=== PATIENT | male | born 1955 | race American Indian/Alaskan Native ===

== ENCOUNTER 2019-02-28 13:02 | Emergency (ER) | payer SELFPAY ==
[2019-02-28 13:10] VITALS: BP 154/96
--- NOTE | 2019-02-28 13:17 | Event Note ---
ED Screening Note Date of service: 02/28/19 Time: 13:14 ED Screening Note: This is a 63 y.o. M. that presents to the ER with pain to right hand x 1 week. Patient states he is unable to make a fist. He had carpal tunnel surgery 12/15/2018 with [facility]. He completed physical therapy. 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 States he felt a pop a few days ago while working and pain since. This initial assessment/diagnostic orders/clinical plan/treatment(s) is/are subject to change based on patients health status, clinical progression and re- assessment by fellow clinical providers in the ED. Further treatment and workup at subsequent clinical providers discretion. Patient/guardian urged not to elope from the ED as their condition may be serious if not clinically assessed and managed. Initial orders include: XR hand
[2019-02-28] MEDS ORDERED: IBUPROFEN PO ONE (13:39)
--- NOTE | 2019-02-28 14:15 | XRay Report ---
RIGHT HAND 5 VIEWS INDICATION / CLINICAL INFORMATION: pain and swelling palm. COMPARISON: None available. FINDINGS: No fracture, dislocation or soft tissue swelling is seen within the right hand. The joint spaces are well preserved. Signer Name: Marshall Leblanc MD Signed: 02/28/2019 2:11 PM Workstation Name: [id number]
--- NOTE | 2019-02-28 14:34 | Emergency Department Report ---
ED Extremity Problem HPI - General Chief complaint: Extremity Injury, Upper Stated complaint: RT HAND INJURY Time Seen by Provider: 02/28/19 13:14 Source: patient Mode of arrival: Ambulatory Limitations: No Limitations - History of Present Illness Initial comments: Patient is a 43-[id number]-[place] male who is complaining of some right hand pain for the last 2-3 days. Patient has a history of right sided carpal tunnel surgery approximately 2 months ago. 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 Patient states while working several days ago he had a ranch and did pull with some force. Patient's pain started after this incident but is progressively worsening with swelling. Patient has some swelling to the hand decreased ability to make a fist. He denies any fevers chills nausea vomiting at this time. Severity scale (0 -10): 8 Improves with: nothing - Related Data Previous Rx's Medication Instructions Recorded Last Taken Type Ibuprofen [Motrin 600 MG tab] 600 mg PO Q8H PRN #20 tablet 02/28/19 Unknown Rx traMADol [Ultram] 50 mg PO Q6HR PRN #12 tablet 02/28/19 Unknown Rx Allergies Allergy/AdvReac Type Severity Reaction Status Date / Time Penicillins Allergy Unknown Verified 02/28/19 13:14 ED Review of Systems ROS: Stated complaint: RT HAND INJURY Other details as noted in HPI Comment: All other systems reviewed and negative ED Past Medical Hx - Past Medical History Previous Medical History?: Yes Hx Hypertension: Yes Hx Diabetes: Yes - Surgical History Past Surgical History?: Yes Additional Surgical History: Colonoscopy, Colon resection, Left knee, Right hand carpel ruthie surgery - Social History Smoking Status: Former Smoker Substance Use Type: Prescribed - Medications Home Medications: Home Medications Medication Instructions Recorded Confirmed Last Taken Type Ibuprofen [Motrin 600 MG tab] 600 mg PO Q8H PRN #20 tablet 02/28/19 Unknown Rx traMADol [Ultram] 50 mg PO Q6HR PRN #12 tablet 02/28/19 Unknown Rx ED Physical Exam - General Limitations: No Limitations General appearance: alert, in no apparent distress - Head Head exam: Present: atraumatic, normocephalic - Eye Eye exam: Present: normal appearance - ENT ENT exam: Present: mucous membranes moist - Neck Neck exam: Present: normal inspection - Respiratory Respiratory exam: Absent: respiratory distress - Cardiovascular Cardiovascular Exam: Present: regular rate, normal rhythm - Rectal Rectal exam: Present: deferred - Extremities Exam Extremities exam: Present: normal inspection - Expanded Upper Extremity Exam Right Hand Wrist exam: Present: tenderness, swelling. Absent: full ROM (patient has some resistance to making a full fist secondary to some soft tissue swelling.) Hand L/R Front: 1 - Positive: other (with tenderness and mild swelling and contusion) Hand L/R Back: 1 - Mild soft tissue swelling - Back Exam Back exam: Present: normal inspection - Neurological Exam Neurological exam: Present: alert, oriented X3 - Psychiatric Psychiatric exam: Present: normal affect, normal mood - Skin Skin exam: Present: warm, dry, intact, normal color. Absent: rash ED Course Vital Signs 02/28/19 13:05 Temperature 98.5 F Pulse Rate 86 Respiratory 18 Rate Blood Pressure 154/96 O2 Sat by Pulse 100 Oximetry ED Medical Decision Making - Radiology Data Radiology results: report reviewed (x-ray shows no fracture) - Medical Decision Making Patient likely with some ligamentous injury secondary to his work and possible injury to his postsurgical area. Patient given anti-inflammatory meds and has been splinted. Patient returned to his orthopedic physician for further evaluation. Critical care attestation.: If time is entered above; I have spent that time in minutes in the direct care of this critically ill patient, excluding procedure time. ED Disposition Clinical Impression: Hand sprain Qualifiers: Encounter type: initial encounter Laterality: right Qualified Code(s): S63.91XA - Sprain of unspecified part of right wrist and hand, initial encounter Disposition: TO HOME OR SELFCARE Is pt being admited?: No Does the pt Need Aspirin: No Condition: Stable Instructions: Hand Sprain (ED) Time of Disposition: 14:36
== END 2019-02-28 14:50 | disposition home or self-care (01) ==
LOC: ED 13:02
DX: S63.91XA Sprain of unspecified part of right wrist and hand, initial encounter (principal); I10 Essential (primary) hypertension; E11.9 Type 2 diabetes mellitus without complications; Z98.890 Other specified postprocedural states; Z87.891 Personal history of nicotine dependence; Z79.899 Other long term (current) drug therapy; Z88.0 Allergy status to penicillin; X50.0XXA Overexertion from strenuous movement or load, initial encounter; Y93.89 Activity, other specified; Y92.89 Other specified places as the place of occurrence of the external cause; Y99.0 Civilian activity done for income or pay

== ENCOUNTER 2019-06-01 05:39 | Emergency (ER) | payer MEDICARE ==
[2019-06-01 05:46] VITALS: BP 172/84
--- NOTE | 2019-06-01 06:02 | Emergency Department Report ---
Minor Respiratory - HPI Chief Complaint: Upper Respiratory Infection Stated Complaint: POSSIBLE SINUS INFECTION Time Seen by Provider: 06/01/19 05:49 Duration: 4 Days Pain Location: Facial, Nose Severity: severe Minor Respiratory: Yes Rhinorrhea, Yes Able to Tolerate Fluids, Yes Cough, Yes Sick Contacts, No Sore Throat, No Ear Pain, No Hemoptysis, No Chest Pain, No Olga rtness of Breath, No Fever Other History: This is a 64-year-old -Mosoth[place] male who presents to the emergency room with cough, sinus pressure, and congestion for 4 days. Past medical history of type 2 diabetes and hypertension. Patient also reports myalgia which she is taking muscle relaxers and cold and flu medication with minimal improvement of symptoms. He denies chest pain, fever, nausea, vomiting, abdominal pain, diarrhea, or throat, weakness, or dizziness. ED Review of Systems ROS: Stated complaint: POSSIBLE SINUS INFECTION Other details as noted in HPI Constitutional: chills. denies: fever ENT: congestion. denies: ear pain, throat pain Respiratory: cough. denies: shortness of breath, wheezing Cardiovascular: denies: chest pain, palpitations Gastrointestinal: denies: abdominal pain, nausea, diarrhea Musculoskeletal: myalgia. denies: back pain, joint swelling, arthralgia Skin: denies: rash, lesions Neurological: denies: headache, weakness, paresthesias Psychiatric: denies: anxiety, depression ED Past Medical Hx - Past Medical History Previous Medical History?: Yes Hx Hypertension: Yes Hx Diabetes: Yes - Surgical History Past Surgical History?: Yes Additional Surgical History: Colonoscopy, Colon resection, Left knee, Right hand carpel ruthie surgery - Social History Smoking Status: Former Smoker Substance Use Type: None - Medications Home Medications: Home Medications Medication Instructions Recorded Confirmed Last Taken Type Ibuprofen [Motrin 600 MG tab] 600 mg PO Q8H PRN #20 tablet 02/28/19 Unknown Rx traMADol [Ultram] 50 mg PO Q6HR PRN #12 tablet 02/28/19 Unknown Rx Doxycycline Hyclate [Doxycycline 100 mg PO Q12HR #10 tab 06/01/19 Unknown Rx Hyclate TAB] Fluticasone [Flonase] 1 spray NS QDAY #1 bottle 06/01/19 Unknown Rx Minor Respiratory Exam - Exam General: Vital signs noted. No distress. Alert and acting appropriately. HEENT: Yes Pharyngeal Erythema (erythematous posterior pharynx, uvula midline), Yes Moist Mucous Membranes, Yes Rhinorrhea (turbinates enlarged with purulent discharge), Yes Conjuctival Injection, Yes Maxillary Tenderness, No Pharyngeal Exudates, No Frontal Tenderness Ear: Neither TM Bulge, Neither TM Erythema, Neither EAC Pain, Neither EAC Discharge Neck: Yes Supple, No Adenopathy Lungs: Yes Good Air Exchange, No Wheezes, No Ronchi, No Stridor, No Cough, No Labored Respirations, No Retractions, No Use of Accessory Muscles, No Other Abnormal Lung Sounds Heart: Yes Regular, No Murmur Abdomen: Yes Normal Bowel Sounds, No Tenderness, No Peritoneal Signs Skin: No Rash, No Edema Neurologic: Alert and oriented, no deficits. Musculoskeletal: Unremarkable. ED Course Vital Signs 06/01/19 05:44 Temperature 98.7 F Pulse Rate 84 Respiratory 18 Rate Blood Pressure 172/84 O2 Sat by Pulse 99 Oximetry ED Medical Decision Making - Medical Decision Making Patient examined by me and stable. No distress noted. Vitals normal. Past medical history of hypertension and type 2 diabetes. Moderate congestion and maxillary sinus tenderness on exam. Acute maxillary sinusitis. Start doxycycline and Flonase. Take Tylenol, ibuprofen, or naproxen for pain. Discharged home stable. Encouraged to do supportive care for URI. Follow up with Primary Care Provider in 2-3 days. Critical care attestation.: If time is entered above; I have spent that time in minutes in the direct care of this critically ill patient, excluding procedure time. ED Disposition Clinical Impression: Cough in adult, Rhinorrhea Acute maxillary sinusitis Qualifiers: Recurrence: non-recurrent Qualified Code(s): J01.00 - Acute maxillary sinusitis, unspecified Disposition: - TO HOME OR SELFCARE Is pt being admited?: No Condition: Stable Instructions: Sinusitis (ED), Cold Symptoms (ED) Additional Instructions: Use warm moist compresses over sinuses. Use ibuprofen or Tylenol for pain. Use nasal saline spray. Avoid taking antihistamines. Follow up with Primary Care Provider if fever, short of breath, chest pain, or symptoms do not improve as discussed. Prescriptions: Doxycycline Hyclate [Doxycycline Hyclate TAB] 100 mg PO Q12HR #10 tab Fluticasone [Flonase] 1 spray NS QDAY #1 bottle Referrals: [facility] [Outside] - 3-5 Days [facility] [Outside] - 3-5 Days [facility] [Outside] - 3-5 Days Forms: Work/School Release Form(ED) Time of Disposition: 06:08
== END 2019-06-01 06:15 | disposition home or self-care (01) ==
LOC: ED 05:39
DX: J01.00 Acute maxillary sinusitis, unspecified (principal); I10 Essential (primary) hypertension; E11.9 Type 2 diabetes mellitus without complications; Z88.0 Allergy status to penicillin
CPT/HCPCS: 99282

== ENCOUNTER 2019-09-21 14:00 | Observation (INO) | payer MEDICARE ==
--- NOTE | 2019-09-21 14:18 | Event Note ---
ED Screening Note ED Screening Note: cp that began two weeks ago states it feels like pressure states he also has right lower back pain radiates down the back of the leg no n/v/d no fever states occasionally his breathing feels labored no leg swelling PMHx HTN, DM, GERD, HLD allergy: PCN states he had a stress test three years ago which was normal no recent travel or surgery This initial assessment/diagnostic orders/clinical plan/treatment(s) is/are subject to change based on patients health status, clinical progression and re-assessment by fellow clinical providers in the ED. Further treatment and workup at subsequent clinical providers discretion. Patient/guardian urged not to elope from the ED as their condition may be serious if not clinically assessed and managed. Initial orders include: CP protocol
--- NOTE | 2019-09-21 15:01 | XRay Report ---
CHEST 2 VIEWS INDICATION: Chest pain. COMPARISON: None FINDINGS: Support devices: None. Heart: Within normal limits. Lungs/pleura: No acute air space or interstitial disease. No pneumothorax. Additional findings: None. IMPRESSION: No acute findings. Signer Name: Clovis Nelson Jr, MD Signed: 09/21/2019 2:57 PM Workstation Name: [id number]
[2019-09-21 15:53] LABS: Mean Corpuscular HGB Conc 31 % (32-34); Mean Corpuscular Volume 74 fl (84-94); Platelet Count 276 K/mm3 (140-440); Red Blood Count 4.74 M/mm3 (3.65-5.03)
--- NOTE | 2019-09-21 15:54 | Emergency Department Report ---
ED Chest Pain HPI - General Chief Complaint: Chest Pain Stated Complaint: CHEST PAIN, SOB , RIGHT LEG PAIN Time Seen by Provider: 09/21/19 14:15 Source: patient Mode of arrival: Ambulatory Limitations: No Limitations - History of Present Illness Initial Comments: Patient is 64 years old male with history of hypertension and diabetes. Patient presented to the ER complaining of chest pain for the last 2 weeks. Patient stated that pain is worse today and that is why he came to the ER. Patient describes his pain as substernal, he stated that he feels like somebody sitting on his chest. Patient denied any fever, chills or cough. MD Complaint: chest pain -: week(s) Onset: during rest Pain Location: substernal Pain Radiation: none Severity: moderate Severity scale (0 -10): 5 Quality: tightness, heaviness Consistency: intermittent - Related Data Home Medications Medication Instructions Recorded Confirmed Last Taken Amlodipine Besylate/Benazepril 1 cap PO DAILY 09/21/19 09/21/19 Unknown [Amlodipine-Benazepril 10-40 mg] Dapagliflozin Propanediol [Farxiga] 10 mg PO DAILY 09/21/19 09/21/19 Unknown Metformin HCl [Metformin HCl ER] 750 mg PO DAILY 09/21/19 09/21/19 Unknown hydroCHLOROthiazide [HCTZ] 25 mg PO DAILY 09/21/19 09/21/19 Unknown Allergies Allergy/AdvReac Type Severity Reaction Status Date / Time Penicillins Allergy Unknown Verified 02/28/19 13:14 Heart Score - HEART Score History: Moderately suspicious EKG: Non-specific Age: 45-65 Risk factors: 1-2 risk factors Troponin: < normal limit HEART Score: 4 - Critical Actions Critical Actions: 4-6 pts:12-16.6% risk of adverse cardiac event. Should be admitted ED Review of Systems ROS: Stated complaint: CHEST PAIN, SOB , RIGHT LEG PAIN Other details as noted in HPI Comment: All other systems reviewed and negative Constitutional: denies: chills Respiratory: shortness of breath. denies: cough, SOB with exertion, SOB at rest, wheezing Cardiovascular: chest pain. denies: palpitations, dyspnea on exertion Gastrointestinal: denies: abdominal pain, nausea, vomiting, diarrhea, constipation, hematemesis, melena, hematochezia Musculoskeletal: denies: back pain Neurological: denies: headache, weakness ED Past Medical Hx - Past Medical History Previous Medical History?: Yes Hx Hypertension: Yes Hx Diabetes: Yes - Surgical History Past Surgical History?: Yes Additional Surgical History: Colonoscopy, Colon resection, Left knee, Right hand carpel ruthie surgery - Social History Smoking Status: Never Smoker Substance Use Type: None - Medications Home Medications: Home Medications Medication Instructions Recorded Confirmed Last Taken Type Amlodipine Besylate/Benazepril 1 cap PO DAILY 09/21/19 09/21/19 Unknown History [Amlodipine-Benazepril 10-40 mg] Dapagliflozin Propanediol [Farxiga] 10 mg PO DAILY 09/21/19 09/21/19 Unknown History Metformin HCl [Metformin HCl ER] 750 mg PO DAILY 09/21/19 09/21/19 Unknown Histo ry hydroCHLOROthiazide [HCTZ] 25 mg PO DAILY 09/21/19 09/21/19 Unknown History ED Physical Exam - General Limitations: No Limitations General appearance: alert, in no apparent distress - Head Head exam: Present: atraumatic, normocephalic, normal inspection - Eye Eye exam: Present: normal appearance - ENT ENT exam: Present: normal exam, normal orophraynx, mucous membranes moist - Neck Neck exam: Present: normal inspection, full ROM. Absent: tenderness, meningismus - Respiratory Respiratory exam: Present: normal lung sounds bilaterally. Absent: respiratory distress, wheezes, rales, rhonchi, stridor, chest wall tenderness, accessory muscle use, decreased breath sounds, prolonged expiratory - Cardiovascular Cardiovascular Exam: Present: regular rate, normal rhythm, normal heart sounds - GI/Abdominal GI/Abdominal exam: Present: soft, normal bowel sounds. Absent: distended, tenderness, guarding, rebound, rigid, organomegaly, mass, bruit, pulsatile mass, hernia - Extremities Exam Extremities exam: Present: normal inspection, full ROM, normal capillary refill. Absent: tenderness, pedal edema, calf tenderness - Back Exam Back exam: Present: normal inspection, full ROM. Absent: CVA tenderness (R), CVA tenderness (L) - Neurological Exam Neurological exam: Present: alert, oriented X3, CN II-XII intact, normal gait, reflexes normal. Absent: motor sensory deficit - Psychiatric Psychiatric exam: Present: normal mood - Skin Skin exam: Present: warm, intact, normal color ED Course Vital Signs 02/09/21/19 09/21/19 14:28 15:56 17:19 Temperature 97.7 F Pulse Rate 79 73 69 Respiratory 20 15 15 Rate Blood Pressure 160/89 Blood Pressure 148/82 141/85 [Right] O2 Sat by Pulse 100 99 98 Oximetry 09/21/19 09/21/19 09/21/19 19:45 20:04 20:15 Temperature Pulse Rate 74 74 66 Respiratory 16 13 Rate Blood Pressure 160/89 Blood Pressure 168/90 137/107 [Right] O2 Sat by Pulse 100 100 Oximetry 09/21/19 21:00 Temperature Pulse Rate 71 Respiratory 15 Rate Blood Pressure Blood Pressure 147/90 [Right] O2 Sat by Pulse 98 Oximetry ED Medical Decision Making - Lab Data Result diagrams: 09/21/19 15:23 09/21/19 15:23 - EKG Data -: EKG Interpreted by Me EKG shows normal: sinus rhythm Rate: normal - EKG Data Interpretation: no acute changes - Radiology Data Radiology results: report reviewed - Medical Decision Making Patient is 64 years old male with history of hypertension and diabetes. Patient presented to the ER complaining of chest pain for the last 2 weeks. Patient stated that pain is worse today and that is why he came to the ER. Patient describes his pain as substernal, he stated that he feels like somebody sitting on his chest. Patient denied any fever, chills or cough. EKG showed no ST elevation or depression. Labs reviewed and is unremarkable except for slightly elevated d-dimer. Patient had a CTA chest which is negative for pulmonary embolism. I discussed the patient with Dr. Anjelica Hernandez, she agreed to admit the patient to medical service for further management. Critical care attestation.: If time is entered above; I have spent that time in minutes in the direct care of this critically ill patient, excluding procedure time. ED Disposition Clinical Impression: Chest pain Disposition: - OP ADMIT IP TO THIS HOSP Is pt being admited?: Yes Condition: Stable Instructions: Chest Pain (ED)
[2019-09-21 16:01] LABS: Alanine Aminotransferase 21 units/L (7-56); Albumin 4.5 g/dL (3.9-5); BUN/Creatinine Ratio 10; Blood Urea Nitrogen 11 mg/dL (9-20); Hemolysis Index 3
[2019-09-21 16:27] LABS: Anisocytosis 1+; Basophils % (Manual) 0 % (0.0-1.8); Hypochromasia 1+; Total Cells Counted 100
[2019-09-21 16:36] LABS: INR 0.98 (0.87-1.13)
[2019-09-21 16:37] LABS: Partial Thromboplastin Time 27.1 Sec. (24.2-36.6)
[2019-09-21] MEDS ORDERED: METOPROLOL TARTRATE 5 MG/5 ML INJ IV ONE (19:03)
--- NOTE | 2019-09-21 19:27 | Cat Scan Report ---
CTA CHEST WITH IV CONTRAST INDICATION: CHEST PAIN WITH DYSPNEA. TECHNIQUE: Axial CT images were obtained through the chest after injection of 100 mL IV contrast. 3 plane MIP re constructions were produced. All CT scans at this location are performed using CT dose reduction for ALARA by means of automated exposure control. COMPARISON: None available. FINDINGS: PULMONARY ARTERIES: No pulmonary emboli. AORTA AND ARTERIES: No acute abnormality. MEDIASTINUM: No mass, lymphadenopathy or other significant abnormality. The heart is normal in size w ithout a pericardial effusion. The trachea and main bronchi are patent and normal in caliber. LUNGS: No suspicious consolidation, nodule or mass. No pneumothorax or pleural effusion. ADDITIONAL FINDINGS: None. UPPER ABDOMEN: No acute findings. BONES: No significant osseous abnormality. IMPRESSION: 1. No CT evidence for pulmonary embolism. 2. No acute findings. Signer Name: Kg Cardenas MD Signed: 09/21/2019 7:23 PM Workstation Name: [id number]
[2019-09-21] MEDS ORDERED: ASPIRIN 81 MG TAB CHEW PO ONE (19:52)
[2019-09-21] MEDS ORDERED: OXYMETAZOLINE 0.05% NASAL SPRAY NS ONE (21:36)
--- NOTE | 2019-09-21 22:37 | History and Physical Report ---
History of Present Illness Date of admission: 09/21/19 22:09 History of present illness: 64-year-old male with a history of hypertension, diabetes comes emergency room with complaints of chest pain. Pain is in the epigastric area that started 2 week ago. He described the pain as pressure, lasting for 6-8 hours, intensity 5/10, no radiation, cannot identify exacerbating factors he denies any nausea vomiting, diaphoresis or palpitation, shortness of breath. He had a stress test 3 years ago which was negative. Patient is being admitted for evaluation of chest pain Review of systems Constitutional: no weight loss Ears, eyes, nose, mouth and throat: no nasal congestion, no nasal discharge, no sinus pressure, no vision change, no red eye. Neck: No neck pain or rigidity. Cardiovascular: no palpitations Respiratory: no cough, shortness of breath Gastrointestinal: no hematochezia, abdominal pain Genitourinary : no frequency , no hematuria Musculoskeletal: no joint swelling or muscle ache Integumentary: no rash, no pruritis Neurological: no parathesias, focal weakness Endocrine: no cold or heat intolerance, no polyuria or polydipsia Hematologic/Lymphatic: no easy bruising, no easy bleeding, no gland swelling Allergic/Immunologic: no urticaria, no angioedema. PAST MEDICAL HISTORY: Hypertension, diabetes PAST SURGICAL HISTORY: Colon resection left knee, carpal tunnel release SOCIAL HISTORY: Denies alcohol, tobacco, drugs FAMILY HISTORY: Hypertension Medications and Allergies Allergies Allergy/AdvReac Type Severity Reaction Status Date / Time Penicillins Allergy Unknown Verified 02/28/19 13:14 Home Medications Medication Instructions Recorded Confirmed Last Taken Type Amlodipine Besylate/Benazepril 1 cap PO DAILY 09/21/19 09/21/19 Unknown History [Amlodipine-Benazepril 10-40 mg] Dapagliflozin Propanediol [Farxiga] 10 mg PO DAILY 09/21/19 09/21/19 Unknown History Metformin HCl [Metformin HCl ER] 750 mg PO DAILY 09/21/19 09/21/19 Unknown History hydroCHLOROthiazide [HCTZ] 25 mg PO DAILY 09/21/19 09/21/19 Unknown History Active Meds: Active Medications Enoxaparin Sodium (Enoxaparin) 30 mg SUB-Q QDAY SUSAN Exam - Physical Exam Narrative exam: Gen. appearance: Patient lying in bed, no apparent distress HEENT: Normocephalic, atraumatic, pupils equally round and reactive to light, extraocular movement intact, and no sclericterus,. No JVD or thyromegaly or nodule,neck supple, no carotid bruit ,mucous membranes moist, no exudate or erythema Heart: S1, S2, regular rate and rhythm Lungs: Clear to auscultation bilaterally, breathing comfortable Abdomen: Positive bowel sounds, nontender, nondistended, no organomegaly Extremity: No edema, cyanosis, clubbing Skin: No rash, nodules, warm, dry Neuro: Oriented 3, cranial nerves II-12 intact, speech is fluent, motor and sensory intact - Constitutional Vitals: Temp Pulse Resp BP Pulse Ox 97.7 F 71 15 147/90 98 09/21/19 14:28 09/21/19 21:00 09/21/19 21:00 09/21/19 21:00 09/21/19 21:00 Results - Labs CBC & Chem 7: 09/21/19 15:23 09/21/19 15:23 Labs: Abnormal lab results 09/21/19 09/21/19 09/21/19 Range/Units 15:23 15:23 15:55 Hgb 11.0 L (11.8-15.2) gm/dl Hct 35.0 L (35.5-45.6) % MCV 74 L (84-94) fl MCH 23 L (28-32) pg MCHC 31 L (32-34) % RDW 18.0 H (13.2-15.2) % Seg Neuts % (Manual) 30.0 L (40.0-70.0) % Lymphocytes % (Manual) 59.0 H (13.4-35.0) % Eosinophils % (Manual) 5.0 H (0.0-4.3) % D-Dimer 263.30 H (0-234) ng/mlDDU Glucose 157 H (75-100) mg/dL Calcium 11.0 H (8.4-10.2) mg/dL Alkaline Phosphatase 132 H (35-129) units/L - Imaging and Cardiology EKG: image reviewed Chest x-ray: report reviewed, image reviewed CT scan - chest: report reviewed Assessment and Plan Assessment Chest pain Check cardiac enzymes,stress test Start aspirin, Percocet Diabetes Check fingersticks, initiate insulin sliding scale Hypertension Continue outpatient medications DVT prophylaxis
[2019-09-21] MEDS ORDERED: oxyCODONE /ACETAMINOPHEN 5-325MG TAB PO PRN (23:39)
[2019-09-21] MEDS ORDERED: ACETAMINOPHEN 325 MG TAB PO PRN (23:39)
[2019-09-21] MEDS ORDERED: ONDANSETRON 4 MG/2 ML INJ IV PRN (23:39)
[2019-09-21] MEDS ORDERED: DEXTROSE 50% IN WATER (25GM) 50 ML SYRINGE IV PRN (23:41)
[2019-09-22] MEDS: INSULIN LISPRO 100 UNIT/ML SUB-Q SCH ×2 (00:45→07:10)
[2019-09-22 01:21] LABS: Creatine Kinase MB 2.8 ng/mL (0.0-4.0)
[2019-09-22 07:25] LABS: Basophils # (Auto) 0.1 K/mm3 (0.0-0.1); Basophils % (Auto) 1.4 % (0.0-1.8); Eosinophils # (Auto) 0.3 K/mm3 (0.0-0.4); Eosinophils % (Auto) 4.9 % (0.0-4.3); Hemoglobin 10.5 gm/dl (11.8-15.2); Lymphocytes # (Auto) 2.5 K/mm3 (1.2-5.4); Mean Corpuscular HGB Conc 32 % (32-34); Mean Corpuscular Volume 73 fl (84-94); Monocytes # (Auto) 0.7 K/mm3 (0.0-0.8); Monocytes % (Auto) 12.8 % (0.0-7.3); Platelet Count 268 K/mm3 (140-440); Red Blood Count 4.56 M/mm3 (3.65-5.03); Red Cell Distribution Width 17.5 % (13.2-15.2)
[2019-09-22 07:44] LABS: Creatine Kinase MB 2.4 ng/mL (0.0-4.0)
[2019-09-22] MEDS ORDERED: REGADENOSON 0.4 MG/5 ML INJ IV ONE (07:48)
[2019-09-22 07:49] LABS: BUN/Creatinine Ratio 12; Blood Urea Nitrogen 13 mg/dL (9-20); Calcium 10.3 mg/dL (8.4-10.2); Hemolysis Index 0
[2019-09-22] MEDS ORDERED: amLODIPine 10 MG TAB PO SCH (10:00)
[2019-09-22] MEDS ORDERED: AMLODIPINE BESYLATE PO SCH (10:00)
[2019-09-22] MEDS ORDERED: [UNRECOGNIZED DRUG - OTHER] PO SCH (10:00)
[2019-09-22] MEDS ORDERED: LISINOPRIL 40 MG TAB PO SCH (10:00)
[2019-09-22] MEDS ORDERED: BENAZEPRIL PO SCH (10:00)
[2019-09-22] MEDS ORDERED: ENOXAPARIN 40 MG/0.4 ML INJ SUB-Q SCH (10:00)
[2019-09-22 10:13] VITALS: BP 143/85
--- NOTE | 2019-09-22 12:06 | Discharge Summary ---
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 Follow up with: PRIMARY CARE, [Primary Care Provider] - 3-5 Days Prescriptions: Famotidine [Pepcid] 20 mg PO BID #60 tablet
== END 2019-09-22 13:00 | disposition home or self-care (01) ==
LOC: ED 14:00 → 4A 22:09
PROVIDERS: ADMIT Internal Medicine; ATTEND Internal Medicine
DX: R07.89 Other chest pain (principal); I10 Essential (primary) hypertension; E11.9 Type 2 diabetes mellitus without complications; Z98.890 Other specified postprocedural states; Z79.84 Long term (current) use of oral hypoglycemic drugs
CPT/HCPCS: 36415; 71046; 71275; 80048; 80053; 82550; 82553; 82962; 83880; 84484; 85007; 85025; 85379; 85610; 85730; 93005; 93010; 93017; 96372; 96374; 99285; G0378; J1650; J2785; Q9967

== ENCOUNTER 2020-10-26 09:46 | Day surgery (SDC) | payer MEDICARE ==
[~2020-10-26 09:46] MED LIST: ceFAZolin/Water 2 GM/20 ML 2 GM/20 ML SYRINGE IV NR
[2020-10-26] MEDS ORDERED: NEOMY 40 MG/POLYMYXIN B 200,000 UNITS/ML (GU) AMPULE IR ONE (09:47)
[2020-10-26] MEDS ORDERED: LACTATED RINGERS 1,000 ML IV SCH (11:15)
--- NOTE | 2020-10-26 11:17 | Anesthesia Day of Surgery ---
Anesthesia Day of Surgery - Day of Surgery Patient Examined: Yes Patient H&P Reviewed: Yes Patient is NPO: Yes
[2020-10-26] MEDS ORDERED: HYDROmorphone 1 MG/1 ML INJ IV PRN ×2 (11:18)
[2020-10-26] MEDS ORDERED: ONDANSETRON 4 MG/2 ML INJ IV PRN (11:18)
--- NOTE | 2020-10-26 11:18 | Anesthesia Consultation ---
Anesthesia Consult and Med Hx Date of service: 10/26/20 - Airway Anesthetic Teeth Evaluation: Edentulous ROM Head & Neck: Adequate Mental/Hyoid Distance: Adequate Mallampati Class: Class II Intubation Access Assessment: Good - Pre-Operative Health Status ASA Pre-Surgery Classification: ASA2 Proposed Anesthetic Plan: General Nerve Block: Femoral - Cardiovascular System Hx Hypertension: Yes - Central Nervous System Hx Psychiatric Problems: No - Other Systems Hx Cancer: Yes
[2020-10-26] MEDS ORDERED: dexAMETHasone 4 MG/ML VIAL ONE (11:21)
[2020-10-26] MEDS ORDERED: BUPIVACAINE/PF (0.25%) 2.5 MG/ML 30 ML VIAL INFILTRATI ONE (11:22)
[2020-10-26] MEDS ORDERED: MIDAZOLAM 2 MG/2 ML INJ IV NR (12:00)
[2020-10-26] MEDS ORDERED: VANCOMYCIN/NS 1 GM/250 ML 1 GM/250 ML BAG IV NR (12:00)
[2020-10-26] MEDS ORDERED: CELECOXIB 200 MG CAP PO NR (12:00)
[2020-10-26] MEDS ORDERED: LIDOCAINE MPF (2%) 20 MG/1 ML VIAL 5 ML ONE (12:05)
[2020-10-26] MEDS ORDERED: HYDROmorphone 1 MG/1 ML INJ ONE (12:05)
[2020-10-26] MEDS ORDERED: ROCURONIUM 50 MG/5 ML INJ IV ONE (12:05)
[2020-10-26] MEDS ORDERED: dexAMETHasone 20 MG/5 ML VIAL ONE (12:05)
[2020-10-26] MEDS ORDERED: KETOROLAC 30 MG/1 ML INJ ONE ×2 (12:05→13:23)
[2020-10-26] MEDS ORDERED: ONDANSETRON 4 MG/2 ML INJ ONE (12:05)
[2020-10-26] MEDS ORDERED: propofoL 200 MG/20 ML VIAL IV ONE (12:06)
[2020-10-26] MEDS ORDERED: MAGNESIUM OXIDE 400 MG TAB PO ONE (12:18)
[2020-10-26] MEDS ORDERED: fentaNYL 100 MCG/2 ML INJ IV ONE (12:18)
[2020-10-26] MEDS ORDERED: ACETAMINOPHEN 500 MG TAB PO ONE (12:18)
[2020-10-26] MEDS ORDERED: VANCOMYCIN 1,500 MG in SODIUM CHLORIDE 0.9% 500 ML 500 ML IV ONE (12:30)
[2020-10-26] MEDS ORDERED: SODIUM CHLORIDE 0.9% IRR 1,500 ML BOTTLE IR ONE (13:16)
[2020-10-26] MEDS ORDERED: NEOSTIGMINE 10MG/10 ML INJ MDV ONE (13:23)
[2020-10-26] MEDS ORDERED: GLYCOPYRROLATE 0.4 MG/2 ML INJ ONE (13:23)
[2020-10-26] MEDS ORDERED: PHENYLEPHRINE/NS 1,000 MCG/10 ML SYRINGE (OR USE) IV ONE (13:30)
--- NOTE | 2020-10-26 13:45 | Procedure Note ---
Date of procedure: 10/26/20 Pre-op diagnosis: Ruptured left quadriceps tendon Post-op diagnosis: same Procedure: Repair of rupture [left] quadriceps tendon Procedure The patient was brought to the OR and placed on the OR table in supine position following induction and intubation by anesthesia the patient's [left] lower extremity was prepped and draped in the usual sterile manner. A timeout procedure was done to identify the patient and the correct operative site. The leg was exsanguinated followed by inflation of the pneumatic tourniquet to 300 mmHg. Midline incision was made superior to the superior pole of the patella and taken down distally to the tibial tubercle. The incision was carried down through skin and subcutaneous the quadriceps tendon was seen and was ruptured roughly 1 cm to its insertion into the superior pole the medial and lateral patellar retinacula were also torn following this the undersurface of the patella was debrided of soft tissue next a #5 Ethibond suture was placed in the quadriceps tendon superiorly and using a baseball type stitch this suture was brought distally through the substance of the patella next day drillbit was used to create our patella tunnels 1 medially the ligament laterally following this a suture passer was used to grab the #5 Ethibond suture and pulled out bony tunnels through the knee was held in extension and the suture construct was sewn and tightened into position The remaining portion of the quadriceps tendon was sewn into the substance of our superior patella tendon using #1 Vicryl the medial and lateral patellar retinacula were repaired primarily. Next the wound was copiously irrigated the remaining soft tissue were sewn together subcutaneously a zip line suture closure was used to approximate the skin edges routine postoperative dressings were applied. The patient tolerated the procedure there were no complications he was sent to postanesthesia recovery in stable condition Anesthesia: LALI, regional Surgeon: CLEVELAND LANDIS (Keturah Reina, 1st assist) Estimated blood loss: minimal Pathology: none Condition: stable Disposition: PACU
[2020-10-26 14:49] VITALS: BP 140/83
== END 2020-10-26 15:35 | disposition home or self-care (01) ==
LOC: OR 09:46
PROVIDERS: ATTEND Orthopaedic Surgery
DX: S76.112A Strain of left quadriceps muscle, fascia and tendon, initial encounter (principal); K21.9 Gastro-esophageal reflux disease without esophagitis; M19.90 Unspecified osteoarthritis, unspecified site; Z88.0 Allergy status to penicillin; Z79.899 Other long term (current) drug therapy; Z79.84 Long term (current) use of oral hypoglycemic drugs; Z85.038 Personal history of other malignant neoplasm of large intestine; Z98.890 Other specified postprocedural states; X58.XXXA Exposure to other specified factors, initial encounter; Y93.89 Activity, other specified; Y92.89 Other specified places as the place of occurrence of the external cause; Y99.8 Other external cause status
CPT/HCPCS: 27385; 36415; 82962; 84132; J1100; J1170; J1885; J2250; J2370; J2405; J2704; J2710; J3010; J3370; J7040; J7120; 64450; J0690

== ENCOUNTER 2021-03-07 00:12 | Emergency (ER) | payer MEDICARE ==
[2021-03-07 02:33] VITALS: BP 150/80
== END 2021-03-07 07:00 | disposition home or self-care (01) ==
LOC: ED 00:12
DX: S91.332A Puncture wound without foreign body, left foot, initial encounter (principal); I10 Essential (primary) hypertension; E11.8 Type 2 diabetes mellitus with unspecified complications; M19.90 Unspecified osteoarthritis, unspecified site; K21.9 Gastro-esophageal reflux disease without esophagitis; Z98.890 Other specified postprocedural states; Z88.0 Allergy status to penicillin; W22.8XXA Striking against or struck by other objects, initial encounter; Y93.89 Activity, other specified; Y92.89 Other specified places as the place of occurrence of the external cause; Y99.0 Civilian activity done for income or pay
CPT/HCPCS: 90471; 90714; 99283

== ENCOUNTER 2021-03-16 09:12 | Emergency (ER) | payer MEDICARE ==
[2021-03-16 09:53] VITALS: BP 140/74
[2021-03-16 10:45] LABS: Basophils # (Auto) 0.1 K/mm3 (0.0-0.1); Basophils % (Auto) 0.9 % (0.0-1.8); Eosinophils # (Auto) 0.1 K/mm3 (0.0-0.4); Eosinophils % (Auto) 1.5 % (0.0-4.3); Hematocrit 25.8 % (35.5-45.6); Hemoglobin 7.9 gm/dl (11.8-15.2); Lymphocytes % (Auto) 23.9 % (13.4-35.0); Mean Corpuscular HGB Conc 31 % (32-34); Monocytes # (Auto) 0.8 K/mm3 (0.0-0.8); Monocytes % (Auto) 9.3 % (0.0-7.3); Platelet Count 293 K/mm3 (140-440); Red Blood Count 3.89 M/mm3 (3.65-5.03); Red Cell Distribution Width 19.3 % (13.2-15.2)
[2021-03-16 10:56] LABS: Mean Corpuscular Volume 66 fl (84-94)
[2021-03-16 10:59] LABS: BUN/Creatinine Ratio 15; Blood Urea Nitrogen 18 mg/dL (9-20); Calcium 11.2 mg/dL (8.4-10.2); Hemolysis Index 5
--- NOTE | 2021-03-16 11:12 | Vascular Lab Report ---
DUPLEX DOPPLER UPPER EXTREMITY VENOUS, LEFT INDICATION / CLINICAL INFORMATION: left arm pain. TECHNIQUE: Duplex doppler imaging was performed through the veins of the left upper extremity using venous compr ession and other maneuvers. COMPARISON: None available. FINDINGS: LEFT INTERNAL JUGULAR VEIN: Negative. LEFT SUBCLAVIAN VEIN: Negative. LEFT AXILLARY VEIN: Negative. LEFT BRACHIAL VEIN: Negative. LEFT FOREARM VEINS: Negative. LEFT BASILIC VEIN (SUPERFICIAL): Negative. ADDITIONAL FINDINGS: None. IMPRESSION: 1. No sonographic evidence for DVT. Signer Name: Goran Freeman MD Signed: 03/16/2021 11:08 AM Workstation Name: [id number]
--- NOTE | 2021-03-16 11:13 | XRay Report ---
XR shoulder 2+V LT INDICATION / CLINICAL INFORMATION: left shoulder pain. COMPARISON: None available. FINDINGS: BONES/JOINT(S): No acute fracture or subluxation. No significant degenerative changes. SOFT TISSUES: No significant abnormality. ADDITIONAL FINDINGS: None. Signer Name: Goran Freeman MD Signed: 03/16/2021 11:09 AM Workstation Name: [id number]
--- NOTE | 2021-03-16 11:47 | Emergency Department Report ---
ED Upper Extremity Inj HPI - General Chief Complaint: Extremity Injury, Upper Stated Complaint: BAD REACTION TO TETNUS SHOT Time Seen by Provider: 03/16/21 10:05 Source: patient Mode of arrival: Ambulatory Limitations: No Limitations - History of Present Illness Initial Comments: This is a 65-year-old male nontoxic, well nourished in appearance, no acute signs of distress presents to the ED with c/o of right shoulder pain 10 days. Patient stated that he developed pain to the area after receiving tetanus shot. Patient denies any injuries or trauma. Patient denies any numbness, tingling, fever, chills, nausea, vomiting, chest pain, shortness of breath, headache, stiff neck. Patient denies any joint swelling or joint redness. Patient some decreased range of motion due to pain. Patient stated allergies to penicillin. MD Complaint: Injury to:: left, shoulder -: days(s) Other Extremity Injury: Shoulder: Left Severity scale (0 -10): 8 Improves With: immobilization Worsens With: movement of extremity Associated Symptoms: denies other symptoms. denies: weakness, numbness, neck pain, suspects foreign body, nausea/vomiting, heard/felt popping sensat - Related Data Home Medications Medication Instructions Recorded Confirmed Last Taken Amlodipine Besylate/Benazepril 1 cap PO DAILY 09/21/19 10/26/20 10/26/20 07:00 [Amlodipine-Benazepril 10-40 mg] Dapagliflozin Propanediol [Farxiga] 10 mg PO DAILY 09/21/19 10/26/20 10/25/20 10:00 Metformin HCl [Metformin HCl ER] 750 mg PO BID 09/21/19 10/26/20 10/25/20 23:00 hydroCHLOROthiazide [HCTZ] 25 mg PO DAILY 09/21/19 10/26/20 10/25/20 10:00 Glimepiride [Amaryl] 4 mg BID 10/24/20 10/26/20 10/25/20 23:00 Previous Rx's Medication Instructions Recorded Last Taken Type Famotidine [Pepcid] 20 mg PO BID #60 tablet 09/22/19 10/25/20 20:00 Rx oxyCODONE /ACETAMINOPHEN [Percocet 1 tab PO Q6HR PRN #30 tablet 10/26/20 Unknown Rx 5/325] Ketorolac [Toradol] 10 mg PO Q6H PRN #20 tablet 03/07/21 Unknown Rx Sulfamethoxazole/Trimethoprim 1 each PO BID #20 tablet 03/07/21 Unknown Rx [Bactrim DS TAB] Naproxen 500 mg PO Q12H PRN #12 tablet 03/16/21 Unknown Rx Allergies Allergy/AdvReac Type Severity Reaction Status Date / Time Penicillins Allergy Severe Unknown Verified 03/16/21 09:53 ED Review of Systems ROS: Stated complaint: BAD REACTION TO TETNUS SHOT Other details as noted in HPI Comment: All other systems reviewed and negative Constitutional: denies: chills, fever Eyes: denies: eye pain, eye discharge, vision change ENT: denies: ear pain, throat pain Respiratory: denies: cough, shortness of breath, wheezing Cardiovascular: denies: chest pain, palpitations Endocrine: no symptoms reported Gastrointestinal: denies: abdominal pain, nausea, diarrhea Genitourinary: denies: urgency, dysuria Musculoskeletal: denies: back pain, joint swelling, arthralgia Skin: denies: rash, lesions Neurological: denies: headache, weakness, paresthesias Psychiatric: denies: anxiety, depression Hematological/Lymphatic: denies: easy bleeding, easy bruising ED Past Medical Hx - Past Medical History Hx Hypertension: Yes Hx Diabetes: Yes Hx GERD: Yes Hx Arthritis: Yes - Surgical History Additional Surgical History: Colonoscopy, Colon resection, Left knee, Right hand carpel ruthie surgery - Social History Smoking Status: Former Smoker Substance Use Type: Alcohol - Medications Home Medications: Home Medications Medication Instructions Recorded Confirmed Last Taken Type Amlodipine Besylate/Benazepril 1 cap PO DAILY 09/21/19 10/26/20 10/26/20 07:00 History [Amlodipine-Benazepril 10-40 mg] Dapagliflozin Propanediol [Farxiga] 10 mg PO DAILY 09/21/19 10/26/20 10/25/20 10:00 History Metformin HCl [Metformin HCl ER] 750 mg PO BID 09/21/19 10/26/20 10/25/20 23:00 History hydroCHLOROthiazide [HCTZ] 25 mg PO DAILY 09/21/19 10/26/20 10/25/20 10:00 History Famotidine [Pepcid] 20 mg PO BID #60 tablet 0210/26/20 10/25/20 20:00 Rx Glimepiride [Amaryl] 4 mg BID 10/24/20 10/26/20 10/25/20 23:00 History oxyCODONE /ACETAMINOPHEN [Percocet 1 tab PO Q6HR PRN #30 tablet 10/26/20 Unknown Rx 5/325] Ketorolac [Toradol] 10 mg PO Q6H PRN #20 tablet 03/07/21 Unknown Rx Sulfamethoxazole/Trimethoprim 1 each PO BID #20 tablet 03/07/21 Unknown Rx [Bactrim DS TAB] Naproxen 500 mg PO Q12H PRN #12 tablet 03/16/21 Unknown Rx ED Physical Exam - General Limitations: No Limitations General appearance: alert, in no apparent distress - Head Head exam: Present: atraumatic, normocephalic - Eye Eye exam: Present: normal appearance - Neck Neck exam: Present: normal inspection, full ROM. Absent: lymphadenopathy - Respiratory Respiratory exam: Absent: respiratory distress - Cardiovascular Cardiovascular Exam: Present: regular rate - Extremities Exam Extremities exam: Present: normal inspection, full ROM (With some pain), normal capillary refill. Absent: tenderness, joint swelling - Expanded Upper Extremity Exam Left General: Present: normal inspection Shoulder Exam: Present: normal inspection, full ROM (With pain). Absent: tenderness, swelling, abrasion, laceration, ecchymosis, deformity, crepidus, dislocation, erythema, tenderness over AC joint Upper Arm exam: Present: normal inspection, full ROM. Absent: tenderness, swelling, abrasion, laceration, ecchymosis, deformity, crepidus, dislocation, erythema Elbow exam: Present: normal inspection, full ROM. Absent: tenderness, swelling, abrasion, laceration, ecchymosis, deformity, crepidus, dislocation, erythema, effusion, pain w/ pronation/supination, tenderness over radial head Forearm Wrist exam: Present: normal inspection, full ROM. Absent: tenderness, swelling, abrasion, laceration, ecchymosis, deformity, crepidus, dislocation, erythema, tenderness over anatomical snuff box, pain with axial thumb loading Hand Wrist exam: Present: normal inspection, full ROM. Absent: tenderness, swelling, abrasion, laceration, ecchymosis, deformity, crepidus, dislocation, erythema, amputation, nail avulsion, subungual hematoma Vascular: Present: normal capillary refill. Absent: vascular compromise (Neurovascular within normal limits) - Back Exam Back exam: Present: normal inspection, full ROM. Absent: tenderness, CVA tenderness (R), CVA tenderness (L), muscle spasm, paraspinal tenderness, vertebral tenderness, rash noted - Neurological Exam Neurological exam: Present: alert, oriented X3, normal gait - Psychiatric Psychiatric exam: Present: normal affect, normal mood - Skin Skin exam: Present: warm, dry, intact, normal color. Absent: rash ED Course Vital Signs 03/16/21 03/16/21 09:50 10:06 Temperature 98.7 F Pulse Rate 89 Respiratory 16 Rate Blood Pressure 140/74 [Right] O2 Sat by Pulse 100 100 Oximetry - Reevaluation(s) Reevaluation #1: 03/16/21 11:45 Patient is speaking in full sentences with no signs of distress noted. ED Medical Decision Making - Lab Data Result diagrams: 03/16/21 10:28 03/16/21 10:28 Lab Results 03/16/21 03/16/21 Range/Units 10:28 10:28 WBC 8.3 (4.5-11.0) K/mm3 RBC 3.89 (3.65-5.03) M/mm3 Hgb 7.9 L (11.8-15.2) gm/dl Hct 25.8 L (35.5-45.6) % MCV 66 L (84-94) fl MCH 20 L (28-32) pg MCHC 31 L (32-34) % RDW 19.3 H (13.2-15.2) % Plt Count 293 (140-440) K/mm3 Lymph % (Auto) 23.9 (13.4-35.0) % [place] % (Auto) 9.3 H (0.0-7.3) % Eos % (Auto) 1.5 (0.0-4.3) % Baso % (Auto) 0.9 (0.0-1.8) % Lymph # (Auto) 2.0 (1.2-5.4) K/mm3 [place] # (Auto) 0.8 (0.0-0.8) K/mm3 Eos # (Auto) 0.1 (0.0-0.4) K/mm3 Baso # (Auto) 0.1 (0.0-0.1) K/mm3 Seg Neutrophils % 64.4 (40.0-70.0) % Seg Neutrophils # 5.3 (1.8-7.7) K/mm3 Sodium 136 L (137-145) mmol/L Potassium 4.2 (3.6-5.0) mmol/L Chloride 104.5 (98-107) mmol/L Carbon Dioxide 22 (22-30) mmol/L Anion Gap 14 mmol/L BUN 18 (9-20) mg/dL Creatinine 1.2 (0.8-1.3) mg/dL Estimated GFR > 60 ml/min BUN/Creatinine Ratio 15 % Glucose 173 H (75-100) mg/dL Calcium 11.2 H (8.4-10.2) mg/dL - Radiology Data [address] [address] Vascular Lab Report Signed Patient: EPHRAIM CLARK MR#: [id number] : 1955 Acct:[id number] Age/Sex: 65 / M ADM Date: 03/16/21 Loc: ED Attending Dr: Ordering Physician: VARINDER IVY NP Date of Service: 03/16/21 Procedure(s): VL venous duplex UE LT Accession Number(s): [id number] cc: VARINDER IVY NP DUPLEX DOPPLER UPPER EXTREMITY VENOUS, LEFT INDICATION / CLINICAL INFORMATION: left arm pain. TECHNIQUE: Duplex doppler imaging was performed through the veins of the left upper extremity using venous compression and other maneuvers. COMPARISON: None available. FINDINGS: LEFT INTERNAL JUGULAR VEIN: Negative. LEFT SUBCLAVIAN VEIN: Negative. LEFT AXILLARY VEIN: Negative. LEFT BRACHIAL VEIN: Negative. LEFT FOREARM VEINS: Negative. LEFT BASILIC VEIN (SUPERFICIAL): Negative. ADDITIONAL FINDINGS: None. IMPRESSION: 1. No sonographic evidence for DVT. Signer Name: Goran Freeman MD Signed: 03/16/2021 11:08 AM Workstation Name: [id number] Transcribed By: CHRISTOPH Dictated By: Goran Freeman MD Electronically Authenticated By: Goran Freeman MD Signed Date/Time: 03/16/21 1108 DD/ 1108 TD/TT: [address] [place] [address] XRay Report Signed Patient: EPHRAIM CLARK MR#: [id number] : 1955 Acct:[id number] Age/Sex: 65 / M ADM Date: 03/16/21 Loc: ED Attending Dr: Ordering Physician: VARINDER IVY NP Date of Service: 03/16/21 Procedure(s): XR shoulder 2+V LT Accession Number(s): [id number] cc: VARINDER IVY NP Fluoro Time In Minutes: XR shoulder 2+V LT INDICATION / CLINICAL INFORMATION: left shoulder pain. COMPARISON: None available. FINDINGS: BONES/JOINT(S): No acute fracture or subluxation. No significant degenerative changes. SOFT TISSUES: No significant abnormality. ADDITIONAL FINDINGS: None. Signer Name: Goran Freeman MD Signed: 03/16/2021 11:09 AM Workstation Name: [id number] Transcribed By: CHRISTOPH Dictated By: Goran vicente MD Electronically Authenticated By: Goran Freeman MD Signed Date/Time: 03/16/21 110 DD/ 110 TD/TT: - Medical Decision Making This is a 65-year-old male that presents with left shoulder strain. Patient is stable and was examined by me. I referred patient to an orthopedic doctor for further evaluation for possible MRI. X-ray and Doppler ultrasound has been obtained and dictated by the radiologist. Patient is notified of the imaging report with noted by the patient. Patient does have normal range of motion with no tenderness but has some pain with range of motion and no joint swelling. No ecchymosis. no joint redness or swelling. Not warm to touch. No signs of cellulites or abscess present. No septic joint present on exam. Patient was instructed to RICE therapy. Patient is discharged with naproxen. At time of discharge, the patient does not seem toxic or ill in appearance. No acute signs of distress noted. Patient agrees to discharge treatment plan of care. No further questions noted by the patient. - Differential Diagnosis DVT, cellulitis, strain, abscess, septic joint Critical care attestation.: If time is entered above; I have spent that time in minutes in the direct care of this critically ill patient, excluding procedure time. ED Disposition Clinical Impression: Left shoulder strain Qualifiers: Encounter type: initial encounter Qualified Code(s): S46.912A - Strain of unspecified muscle, fascia and tendon at shoulder and upper arm level, left arm, initial encounter Disposition: HOME / SELF CARE / HOMELESS Is pt being admited?: No Does the pt Need Aspirin: No Condition: Stable Instructions: RICE Therapy for Routine Care of Injuries, [id number] Additional Instructions: Follow-up with a orthopedic doctor in 3-5 days or if symptoms worsen and continue return to emergency room as soon as possible. No physical activity that extremity until cleared by orthopedic doctor Prescriptions: Naproxen 500 mg PO Q12H PRN #12 tablet PRN Reason: Pain , Severe (7-10) Referrals: WILMER HAWKINS MD [Primary Care Provider] - 3-5 Days CLEVELAND LANDIS MD [Staff Physician] - 3-5 Days PRIMARY CAREMD [Referring] - 3-5 Days BREANNE HAGAN MD [Staff Physician] - 3-5 Days Time of Disposition: 11:48
== END 2021-03-16 12:10 | disposition home or self-care (01) ==
LOC: ED 09:12
DX: S46.912A Strain of unspecified muscle, fascia and tendon at shoulder and upper arm level, left arm, initial encounter (principal); I10 Essential (primary) hypertension; E11.8 Type 2 diabetes mellitus with unspecified complications; K21.9 Gastro-esophageal reflux disease without esophagitis; M19.90 Unspecified osteoarthritis, unspecified site; Z98.890 Other specified postprocedural states; Z87.891 Personal history of nicotine dependence; Z88.0 Allergy status to penicillin; X58.XXXA Exposure to other specified factors, initial encounter; Y93.89 Activity, other specified; Y92.89 Other specified places as the place of occurrence of the external cause; Y99.8 Other external cause status
CPT/HCPCS: 36415; 80048; 85025; 99284